=== PATIENT | male | born 1970 ===

== ENCOUNTER 2020-12-28 09:53 | Emergency (ER) | payer MEDICARE, SELFPAY ==
--- NOTE | 2020-12-28 10:07 | ED.URI ---
HPI - URI/Sore Throat General Chief Complaint: Weakness Stated Complaint: aches, out of breath, chills Time Seen by Provider: 12/28/20 10:07 Source: patient and RN notes reviewed History of Present Illness HPI Narrative: Patient is a 50-year-old male who presents the urgent care with complaints of intermittent shortness of breath, body aches, chills, sweats, mild nonproductive cough, lethargy. Patient also reports of a slight decrease in appetite but has been able to increase his fluids. Patient states symptoms started Thursday approximately 5 to 6 days ago. 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 Patient also reports that he lives with his 67-year-old mother and is worried he may have Covid. Patient denies of any known fever, nausea, vomiting, wheezing, sore throat or congestion. Patient denies of any chest pain. No other acute complaints. No acute distress noted. Patient aware of the plan of care. Some parts of this dictation were generated by voice recognition software and may contain typographical and/or grammatical inaccuracies. Related Data Allergies Allergy/AdvReac Type Severity Reaction Status Date / Time No Known Allergies Allergy Verified 12/28/20 10:04 Review of Systems Review of Systems: Narrative: CONSTITUTIONAL: Reports of chills and sweats; reports of intermittent lethargy EYES: Denies visual changes, redness, or discharge. ENT: Denies rhinorrhea, congestion, sore throat, or otalgia. CARDIOVASCULAR: Denies chest pain, palpitations, or edema. RESPIRATORY: Reports a mild nonproductive cough with intermittent dyspnea on exertion GASTROINTESTINAL: Denies abdominal pain, nausea, vomiting, or diarrhea. GENITOURINARY: Denies dysuria or hematuria. SKIN: Denies rash or itching. MUSCULOSKELETAL: Reports of body aches and mild low back pain NEUROLOGIC: Denies headache, numbness, or weakness. All other systems reviewed are negative, except as documented in HPI. PMFSH Comments At the time of my signature, I reviewed and agree with the nursing past medical, surgical, social, and family history. There is no relevant family history pertinent to the patient complaint. Exam Narrative: Exam Narrative: GENERAL: This is a well-nourished, well-developed patient, anxious and tearful HEAD: normocephalic, atraumatic. EYES: PERRL. Sclera clear/white. Vision is grossly intact. EARS: External ears normal, auditory canals clear and without drainage, TMs normal without perforation. Hearing grossly intact. NOSE: External nose normal with no obvious nasal discharge, nares without redness, clear rhinorrhea. THROAT: Mucous membranes moist, posterior pharynx clear. Moderate postnasal drainage NECK: Neck supple, non-tender without lymphadenopathy CARDIOVASCULAR: Regular rate and rhythm without murmurs, gallops, or rubs. RESPIRATORY: Clear to auscultation. Breath sounds equal bilaterally. No wheezes, rales, or rhonchi. SKIN: warm, intact with no suspicious lesions or rash, good texture and turgor. NEURO: awake, alert, and oriented to person, place and time. There were no obvious focal neurologic abnormalities. EXTREMITIES: No clubbing, cyanosis, or edema. Course Vital Signs Vital signs: Vital Signs Temperature 98.7 F 12/28/20 10:15 Pulse Rate 89 12/28/20 10:15 Respiratory Rate 18 12/28/20 10:15 Blood Pressure 139/82 12/28/20 10:15 Pulse Oximetry 100 12/28/20 10:15 Temperature 98.7 F 12/28/20 10:15 Pulse Rate 89 12/28/20 10:15 Respiratory Rate 18 12/28/20 10:15 Blood Pressure 139/82 12/28/20 10:15 Pulse Oximetry 100 12/28/20 10:15 Reviewed MDM - URI/Sore Throat MDM Narrative Medical decision making narrative: Reviewed lab results with the patient. He is aware that his blood sugar was slightly high which is likely due to his morning coffee creamer. Advised the patient to continue evaluating his blood s
[2020-12-28 10:15] VITALS: BP 139/82; PULSE 89; RESP 18; TEMP 37.1; O2SAT 100
[2020-12-28 10:27] LABS: Glucose Point of Care 283 (65-105)
== END 2020-12-28 11:35 | disposition home or self-care (01) ==
PROVIDERS: Emergency Provider Nurse Practitioner Family; PCP Internal Medicine Gastroenterology
DX: U07.1 COVID-19 (principal); E78.00 Pure hypercholesterolemia, unspecified; I10 Essential (primary) hypertension; E11.9 Type 2 diabetes mellitus without complications
CPT/HCPCS: 82948; 87426; 99213; C9803; G0463